=== PATIENT | male | born 1975 | race Hispanic/Latino ===

== ENCOUNTER 2019-09-23 22:18 | Inpatient (IN) | payer BC, OTHER ==
[2019-09-23 23:38] LABS: Basophils % 0.5 % (0-1.3); Hematocrit 42.2 % (39.6-49.0); Lymphocytes % 23.9 % (15.3-44.8); MPV 9.6 fL (7.6-11.3); RBC Red Blood Cell Count 4.64 M/uL (4.33-5.43)
[2019-09-23 23:40] LABS: Protime INR 1.04
[2019-09-23] MEDS ORDERED: ACETAMINOPHEN 500 MG TAB ONE (23:47)
[2019-09-23] MEDS ORDERED: NA CHLORIDE 0.9% 3,000 ML ONE (23:47)
[2019-09-23 23:51] LABS: ALT/SGPT 49 U/L (12-78); AST/SGOT 32 U/L (15-37); Albumin 3.4 g/dL (3.4-5.0); Alkaline Phosphatase 107 U/L (45-117); BUN Blood Urea Nitrogen 17 mg/dL (7-18); Bicarbonate 28 mmol/L (21-32); Bilirubin Direct < 0.1 mg/dL (0-0.2); Bilirubin Total 0.3 mg/dL (0.2-1.0); Creatine Phosphokinase 371 U/L (39-308); Glucose Level 141 mg/dL (74-106); Lipase 175 U/L (73-393); Potassium 3.9 mmol/L (3.5-5.1); Protein, Total 7.8 g/dL (6.4-8.2); Sodium Level 140 mmol/L (136-145); Troponin (Emerg Dept Use Only) 0.11 ng/mL (0.0-0.045)
[2019-09-24 00:53] LABS: Urine Bacteria <20 /HPF (NONE SEEN); Urine RBC NONE SEEN /HPF (NONE SEEN); Urine Urothelial Cells <5 /HPF (NONE SEEN)
[2019-09-24] MEDS ORDERED: ASPIRIN 81 MG CHEWABLE TABLET ONE (01:14)
[2019-09-24] MEDS ORDERED: ENOXAPARIN 30 MG/0.3 ML SQ ONE (01:47)
[2019-09-24] MEDS ORDERED: ENOXAPARIN 100 MG/ML SYR SQ ONE (01:47)
[2019-09-24] MEDS ORDERED: ACETAMINOPHEN 500 MG TAB PO PRN (03:03)
[2019-09-24] MEDS ORDERED: MORPHINE 2 MG/ML SYR IV PRN (03:03)
[2019-09-24] MEDS ORDERED: ONDANSETRON 4 MG/2 ML VIAL IV PRN (03:03)
[2019-09-24] MEDS ORDERED: HYDRALAZINE HCL 20 MG/ML VIAL IV PRN (03:07)
[2019-09-24] MEDS ORDERED: Oxycodone HCl/Acetaminophen 1 TAB TAB PO PRN (03:07)
[2019-09-24] MEDS ORDERED: ALBUTEROL 2.5 MG/3 ML NEB SOL NEB PRN (03:07)
[2019-09-24] MEDS ORDERED: GUAIFENESIN/DM 5 ML UCUP PO PRN (03:07)
--- NOTE | 2019-09-24 03:09 | EDPHYS ---
Physician Documentation [facility] Name: Evan Boogie Jr Age: 44 yrs Sex: Male : 1975 Arrival Date: 09/23/2019 Time: 22:21 Bed 30 Private MD: ED Physician Cong Yo HPI: 09/22 23:05 This 44 yrs old Male presents to ER via Ambulatory with complaints of Cough, cp Headache, ITCHY THROAT, Breathing Difficulty. 23:05 The patient or guardian reports cough, that is intermittent, with productive sputum. cp 23:05 Onset: The symptoms/episode began/occurred last month. Associated signs and symptoms: cp Pertinent positives: sore throat, headache, shortness of breath, Pertinent negatives: chest pain, diarrhea, fever, vomiting. Severity of symptoms: in the emergency department the symptoms are unchanged despite home interventions. Historical: - Allergies: 22:46 No Known Allergies; lp1 - Home Meds: 22:46 None [Active]; lp1 - PMHx: 22:46 psoriasis; Hypertension; lp1 - PSHx: 22:46 None; lp1 - Immunization history:: Adult Immunizations up to date, Flu vaccine is not up to date. - Social history:: Smoking status: Patient denies any tobacco usage or history of. ROS: 23:10 Constitutional: Positive for fever, Negative for poor PO intake. cp 23:10 Eyes: Negative for injury, pain, redness, and discharge. cp 23:10 ENT: Positive for sore throat, Negative for drainage from ear(s), ear pain, difficulty swallowing, difficulty handling secretions. 23:10 Cardiovascular: Negative for chest pain, edema, palpitations. 23:10 Respiratory: Positive for cough, "sounds productive", shortness of breath, at rest. 23:10 Abdomen/GI: Negative for abdominal pain, vomiting, diarrhea, constipation. 23:10 Back: Negative for radiated pain. 23:10 : Negative for urinary symptoms. 23:10 Skin: Negative for cellulitis, rash. 23:10 Neuro: Positive for headache, Negative for altered mental status, syncope, weakness. 23:10 All other systems are negative. Exam: 23:15 Constitutional: The patient appears in no acute distress, alert, awake, cp non-diaphoretic, non-toxic, well developed, well nourished, obese, obviously ill. 23:15 Head/Face: Normocephalic, atraumatic. cp 23:15 Eyes: Periorbital structures: appear normal, Pupils: equal, round, and reactive to light and accomodation, Extraocular movements: intact throughout, Conjunctiva: normal, no exudate, no injection, Sclera: no appreciated abnormality, Lids and lashes: appear normal, bilaterally. 23:15 ENT: External ear(s): are unremarkable, Ear canal(s): are normal, clear, TM's: dullness, bilaterally, Nose: is normal, Mouth: Lips: moist, Oral mucosa: moist, Posterior pharynx: Airway: no evidence of obstruction, patent, Tonsils: no enlargement, no exudate, Uvula: midline, swelling, is not appreciated, erythema, that is mild, exudate, is not appreciated. 23:15 Neck: ROM/movement: is normal, is supple, no meningismus, no nuchal rigidity. 23:15 Chest/axilla: Inspection: normal, Palpation: is normal, no crepitus, no tenderness. 23:15 Cardiovascular: Rate: tachycardic, Rhythm: regular, Edema: is not appreciated, JVD: is not appreciated. 23:15 Respiratory: the patient does not display signs of respiratory distress, Respirations: labored breathing, is not present, shallow respirations, are not present, Breath sounds: bronchial sounds, that are mild, are heard diffusely, stridor, is not appreciated, + upper airway congestion. 23:15 Abdomen/GI: Inspection: abdomen appears normal, Palpation: abdomen is soft and non-tender, in all quadrants. 23:15 Back: pain, is absent, ROM is normal. 23:15 Skin: no rash present. 23:15 Neuro: Orientation: to person, place \\T\\ time. Mentation: is normal, Cerebellar function: is grossly normal, Motor: moves all fours, strength is normal, Sensation: is normal. 23:30 ECG was reviewed by the Attending Physician. cp Vital Signs: 22:48 BP 138 / 81; Pulse 118; Resp 22; Temp 101.1(O); Pulse Ox 94% on R/A; Weight 129.27 kg lp1 (R); Height 5 ft. 6 in. (167.64 cm); Pain 0/10; 23:48 BP 133 / 82; Pulse 102; Resp 14; Temp 99.0(O); Pulse Ox 96% on 2 lpm NC; Pain 0/10; ls4 0318 00:40 BP 167 / 95; Pulse 71; Resp 19; Temp 99; Pulse Ox 89% on R/A; Pain 0/10; ls4 01:36 BP 138 / 105; Pulse 88; Resp 16; Temp 98.7(O); Pulse Ox 94% on 2 lpm NC; Pain 0/10; ls4 02:36 BP 141 / 95; Pulse 89; Resp 18; Pulse Ox 97% on 3 lpm NC; lp1 09/22 22:48 Body Mass Index 46.00 (129.27 kg, 167.64 cm) lp1 09/22 23:48 pt placed on 2 liters nasal canula ls4 09/23 00:40 pt resp status improved. ls4 MDM: 09/22 22:59 Patient medically screened. cp 23:15 Differential diagnosis: bronchitis, flu, URI, pneumonia, sepsis, pulmonary embolism, cp acute ND. 09/23 03:05 Data reviewed: vital signs, nurses notes, lab test result(s), EKG, radiologic studies, cp CT scan, plain films, I have discussed the patient's presentation/case with the attending Emergency Department Physician; and as a result, I will admit patient. 03:05 Antibiotic administration: Rocephin and Zithromax given. Test interpretation: by ED cp physician or midlevel provider: ECG, plain radiologic studies, chest xray negative for focal pneumonia. Response to treatment: the patient's symptoms have mildly improved after treatment, and as a result, I will admit patient. 09/22 23:01 Order name: Urine Culture 09/22 23:01 Order name: Basic Metabolic Panel; Complete Time: 00:17 cp 09/23 00:18 Interpretation: Normal except: GLUC 141; CA 8.4. cp 09/22 23:01 Order name: Blood Culture Adult (2) cp 09/22 23:01 Order name: CBC with Diff; Complete Time: 00:17 cp 09/23 00:17 Interpretation: Normal except: MN% 14.1. cp 09/22 23:01 Order name: CPK; Complete Time: 00:17 cp 09/23 00:17 Interpretation: Abnormal: CPK 371. cp 09/22 23:01 Order name: Lactate; Complete Time: 00:17 cp 09/22 23:01 Order name: LFT's; Complete Time: 00:17 cp 09/23 00:20 Interpretation: Normal except: GLOB 4.4; A/G 0.8. cp 09/22 23:01 Order name: Lipase; Complete Time: 00:17 cp 09/22 23:01 Order name: Procalcitonin; Complete Time: 00:54 cp 09/23 00:55 Interpretation: Reviewed. cp 09/22 23:01 Order name: Protime (+inr); Complete Time: 00:54 cp 09/22 23:01 Order name: Ptt, Activated; Complete Time: 00:54 cp 09/22 23:01 Order name: Troponin (emerg Dept Use Only); Complete Time: 00:17 cp 09/23 00:18 Interpretation: Abnormal: TROPED 0.11. cp 09/22 23:01 Order name: Urine Microscopic Only; Complete Time: 00:54 cp 09/22 23:04 Order name: Flu; Complete Time: 00:17 ls4 09/23 00:21 Order name: D-Dimer; Complete Time: 00:54 EDMS 09/23 00:27 Order name: Strep; Complete Time: 02:59 ls4 09/23 01:07 Order name: Glucose, Ancillary Testing; Complete Time: 01:14 EDMS 09/23 02:11 Order name: Throat Culture EDMS 09/23 03:08 Order name: CBC with Automated Diff EDMS 09/23 03:08 Order name: CBC with Automated Diff EDMS 09/23 03:08 Order name: Comprehensive Metabolic Panel EDMS 09/23 03:08 Order name: Comprehensive Metabolic Panel EDMS 09/23 03:12 Order name: Thyroid Stimulating Hormone EDMS 09/23 03:12 Order name: Magnesium EDMS 09/23 03:12 Order name: Magnesium EDMS 09/23 03:12 Order name: Magnesium EDMS 09/23 03:12 Order name: Magnesium EDMS 09/23 03:12 Order name: Troponin I EDMS 09/23 03:12 Order name: Troponin I EDMS 09/23 03:12 Order name: Troponin I EDMS 09/22 23:01 Order name: Accucheck; Complete Time: 23:34 cp 09/22 23:01 Order name: Cardiac monitoring; Complete Time: 23:34 cp 09/22 23:01 Order name: EKG - Nurse/Tech; Complete Time: 23:35 cp 09/22 23:01 Order name: IV Saline Lock - Large Bore; Complete Time: 23:35 cp 09/22 23:01 Order name: Labs collected and sent; Complete Time: 23:35 cp 09/22 23:01 Order name: O2 Per Protocol; Complete Time: 23:35 cp 09/22 23:01 Order name: O2 Sat Monitoring; Complete Time: 23:35 cp 09/22 23:01 Order name: Urine Dipstick-Ancillary (obtain specimen); Complete Time: 00:13 cp 09/22 23:50 Order name: XRAY Chest Pa And Lat (2 Views) 09/23 01:16 Order name: CT Chest For PE Angio 09/23 03:08 Order name: CONS Pharmacy Consult [facility] 09/23 03:08 Order name: CONS Physician Consult [facility] 09/23 03:08 Order name: Heart Healthy [facility] 09/23 03:12 Order name: Echo with Doppler [facility] 09/23 03:12 Order name: Troponin I [facility] 09/23 03:12 Order name: Sputum Gram Stain [facility] 09/23 03:12 Order name: Sputum Culture [facility] EC/17 23:30 Rate is 114 beats/min. Rhythm is regular. NH interval is normal. QRS interval is cp normal. Interpreted by me. Reviewed by me. Administered Medications: Discontinued: NS 0.9% (30 ml/kg) 30 ml/kg IV at bolus once; Sepsis Protocol 23:36 Drug: Acetaminophen 1000 mg Route: PO; ls4 09/23 00:01 Follow up: Response: No adverse reaction; Marked relief of symptoms 4 09/22 23:38 Drug: NS 0.9% (30 ml/kg) 3800 mg Route: IV; Rate: bolus; Site: right antecubital; ls4 09/23 01:20 Follow up: IV Intake: 1000ml ls4 00:52 Drug: Aspirin Chewable Tablet 324 mg Route: PO; ls4 01:20 Follow up: Response: No adverse reaction ls4 01:33 Drug: Lovenox 130 mg Route: Sub-Q; Site: right lower abdomen; ls4 02:09 Follow up: Response: No adverse reaction ls4 03:55 Drug: Rocephin 2 grams Route: IV; Rate: calculated rate; Site: right antecubital; jb4 04:01 Follow up: Response: No adverse reaction; IV Status: Completed infusion; IV Intake: [id number] 04:05 Drug: Zithromax 500 mg Route: IVPB; Infused Over: 1 hrs; Site: right antecubital; jb4 Disposition: 16:30 Co-signature as Attending Physician, Cong Yo MD I agree with the assessment and 4 plan of care. Disposition: 09/24/19 03:08 Hospitalization ordered by Sidney Sheth for Inpatient Admission. Preliminary diagnosis are Pneumonia due to other specified bacteria, Acute Coronary Syndrome, Hypertensive heart disease. - Bed requested for Telemetry/MedSurg (Inpatient). - Status is Inpatient Admission. sv - Condition is Stable. - Problem is new. - Symptoms have improved. Signatures: Dispatcher [employer] EDMS Sara Nieto RN RN Alfreda Carlson RN RN Karishma Begum RN RN lp1 Issac Martinez PA PA Abundio Pate, RN AKIRA jb4 Cong Yo MD MD 4 Lauren Ellsworth RN RN ls4 Corrections: (The following items were deleted from the chart) 00:18 00:17 Normal except: GLUC 141. cp cp 03:08 03:08 Hospitalization Ordered by Sidney Sheth MD for Inpatient Admission. Preliminary cp diagnosis is Pneumonia due to other specified bacteria; Acute Coronary Syndrome. Bed requested for Telemetry/MedSurg (Inpatient). Status is Inpatient Admission. Condition is Stable. Problem is new. Symptoms have improved. cp 03:12 03:08 09/24/2019 03:08 Hospitalization Ordered by Sidney Sheth MD for Inpatient mw Admission. Preliminary diagnosis is Pneumonia due to other specified bacteria; Acute Coronary Syndrome; Hypertensive heart disease. Bed requested for Telemetry/MedSurg (Inpatient). Status is Inpatient Admission. Condition is Stable. Problem is new. Symptoms have improved. cp 05:50 03:12 09/24/2019 03:08 Hospitalization Ordered by Sidney Sheth MD for Inpatient mw Admission. Preliminary diagnosis is Pneumonia due to other specified bacteria; Acute Coronary Syndrome; Hypertensive heart disease. Bed requested for [facility] ER HOLD. Status is Inpatient Admission. Condition is Stable. Problem is new. Symptoms have improved. 07:59 05:50 09/24/2019 03:08 Hospitalization Ordered by Sidney Sheth MD for Inpatient sv Admission. Preliminary diagnosis is Pneumonia due to other specified bacteria; Acute Coronary Syndrome; Hypertensive heart disease. Bed requested for Telemetry/MedSurg (Inpatient). Status is Inpatient Admission. Condition is Stable. Problem is new. Symptoms have improved. mw
--- NOTE | 2019-09-24 03:09 | ER ---
Nurse's Notes [facility] Name: Evan Boogie Jr Age: 44 yrs Sex: Male : 1975 Arrival Date: 09/23/2019 Time: 22:21 Bed 30 Private MD: Diagnosis: Pneumonia due to other specified bacteria;Acute Coronary Syndrome;Hypertensive heart disease Presentation: 09/22 22:44 Chief complaint: Patient states: Trouble breathing due to coughing up mucus for the lp1 past 6 weeks; Attempted to see PCP but had to leave due to another appt scheduled; Denies any fever, vomiting, diarrhea. Coronavirus screen: The patient has NOT traveled to a country currently being monitored by the [facility] within the last 14 days. The patient has NOT had contact with any known and/or suspected case of coronavirus. Ebola Screen: No symptoms or risks identified at this time. Risk Assessment: Do you want to hurt yourself or someone else? Patient reports no desire to harm self or others. 22:44 Method Of Arrival: Ambulatory lp1 22:44 Acuity: VALERIE 3 lp1 23:01 Initial Sepsis Screen: Does the patient meet any 2 criteria? Temp <36.0*C (96.8*F)) or lp1 > 38.3*C (100.9*F). HR > 90 bpm. Does the patient have a suspected source of infection? Yes: Productive cough/pneumonia. Triage Assessment: 22:49 General: Appears uncomfortable, obese, Behavior is calm, cooperative. Pain: Denies ls4 pain. Neuro: Level of Consciousness is awake, alert, obeys commands, Oriented to person, place, time, situation. Cardiovascular: Denies chest pain, Capillary refill < 3 seconds Patient's skin is warm and dry. Respiratory: Airway is patent Respiratory effort is even, unlabored, Respiratory pattern is regular, the patient has moderate shortness of breath Parent/caregiver reports the patient having cough that is productive, hacking, pain with cough. 22:49 Headache History: The patient has had previous headaches and this one is similar to ls4 previous episodes. 22:49 Pain: Complains of pain in neck Pain at worst was 3 out of 10 on a pain scale. Pain ls4 began gradually, 3 weeks Aggravated by coughing Also complains of no other associated symptoms. shortness of breath. Historical: - Allergies: 22:46 No Known Allergies; lp1 - Home Meds: 22:46 None [Active]; lp1 - PMHx: 22:46 psoriasis; Hypertension; lp1 - PSHx: 22:46 None; lp1 - Immunization history:: Adult Immunizations up to date, Flu vaccine is not up to date. - Social history:: Smoking status: Patient denies any tobacco usage or history of. Screenin:46 Abuse screen: Denies threats or abuse. Denies injuries from another. Nutritional lp1 screening: No deficits noted. Tuberculosis screening: No symptoms or risk factors identified. Fall Risk None identified. Assessment: 23:16 General: Appears uncomfortable. Cardiovascular: Reports shortness of breath, Denies ls4 chest pain, Capillary refill < 3 seconds Clubbing of nail beds is absent Patient's skin is warm and dry. Chest pain is denied. 23:16 Respiratory: Reports shortness of breath on exertion cough that is non-productive, ls4 since 3 weeks. GI: No deficits noted. No signs and/or symptoms were reported involving the gastrointestinal system. : No deficits noted. No signs and/or symptoms were reported regarding the genitourinary system. Derm: No deficits noted. No signs and/or symptoms reported regarding the dermatologic system. Musculoskeletal: No deficits noted. No signs and/or symptoms reported regarding the musculoskeletal system. 09/23 00:00 Reassessment: Patient appears in no apparent distress at this time. Patient and/or ls4 family updated on plan of care and expected duration. Pain level reassessed. Patient is alert, oriented x 3, equal unlabored respirations, skin warm/dry/pink. pt placed on 2 liters nasal cannula Patient states symptoms have improved. 01:00 Reassessment: Patient appears in no apparent distress at this time. Patient and/or ls4 family updated on plan of care and expected duration. Pain level reassessed. Patient is alert, oriented x 3, equal unlabored respirations, skin warm/dry/pink. pt resting quietly . 02:35 Reassessment: Patient appears in no apparent distress at this time. Patient resting, lp1 eyes closed, respirations even. Vital Signs: 09/22 22:48 BP 138 / 81; Pulse 118; Resp 22; Temp 101.1(O); Pulse Ox 94% on R/A; Weight 129.27 kg lp1 (R); Height 5 ft. 6 in. (167.64 cm); Pain 0/10; 23:48 BP 133 / 82; Pulse 102; Resp 14; Temp 99.0(O); Pulse Ox 96% on 2 lpm NC; Pain 0/10; ls4 03/18 00:40 BP 167 / 95; Pulse 71; Resp 19; Temp 99; Pulse Ox 89% on R/A; Pain 0/10; ls4 01:36 BP 138 / 105; Pulse 88; Resp 16; Temp 98.7(O); Pulse Ox 94% on 2 lpm NC; Pain 0/10; ls4 02:36 BP 141 / 95; Pulse 89; Resp 18; Pulse Ox 97% on 3 lpm NC; lp1 09/22 22:48 Body Mass Index 46.00 (129.27 kg, 167.64 cm) lp1 09/22 23:48 pt placed on 2 liters nasal canula ls4 03 00:40 pt resp status improved. ls4 ED Course: 09/22 22:21 Patient arrived in ED. ag3 22:33 Lauren Ellsworth, RN is Primary Nurse. ls4 22:45 Triage completed. lp1 22:46 Arm band placed on right wrist. lp1 22:50 Issac Martinez PA is PHCP. cp 22:50 Cong Yo MD is Attending Physician. cp 23:03 Lauren Ellsworth, RN is Primary Nurse. ls4 23:10 No provider procedures requiring assistance completed. Inserted saline lock: 20 gauge ls4 in right antecubital area, using aseptic technique. Blood collected. 23:36 Initial lab(s) drawn, by nh, sent to lab. First set of blood cultures drawn by me, ls4 Second set of blood cultures drawn. Oxygen administration via nasal cannula. 03/18 00:40 XRAY Chest Pa And Lat (2 Views) In Process Unspecified. EDMS 02:17 CT Chest For PE Angio In Process Unspecified. EDMS 02:36 Patient has correct armband on for positive identification. Placed in gown. Bed in low lp1 position. Call light in reach. Report received from Lauren Ellsworth RN. monitoring tech on. Pulse ox on. NIBP on. 03:07 Sidney Sheth MD is Hospitalizing Provider. cp 07:45 Patient admitted, IV remains in place. sv Administered Medications: Discontinued: NS 0.9% (30 ml/kg) 30 ml/kg IV at bolus once; Sepsis Protocol 09/22 23:36 Drug: Acetaminophen 1000 mg Route: PO; ls4 09/23 00:01 Follow up: Response: No adverse reaction; Marked relief of symptoms ls4 09/22 23:38 Drug: NS 0.9% (30 ml/kg) 3800 mg Route: IV; Rate: bolus; Site: right antecubital; ls4 09/23 01:20 Follow up: IV Intake: 1000ml ls4 00:52 Drug: Aspirin Chewable Tablet 324 mg Route: PO; ls4 01:20 Follow up: Response: No adverse reaction ls4 01:33 Drug: Lovenox 130 mg Route: Sub-Q; Site: right lower abdomen; ls4 02:09 Follow up: Response: No adverse reaction ls4 03:55 Drug: Rocephin 2 grams Route: IV; Rate: calculated rate; Site: right antecubital; jb4 04:01 Follow up: Response: No adverse reaction; IV Status: Completed infusion; IV Intake: [id number] 04:05 Drug: Zithromax 500 mg Route: IVPB; Infused Over: 1 hrs; Site: right antecubital; jb4 Intake: 01:20 IV: 1000ml; Total: 1000ml. ls4 04:01 IV: 20ml; Total: 1020ml. jb4 Outcome: 03:08 Decision to Hospitalize by Provider. cp 07:45 Admitted to Tele accompanied by tech, via stretcher, room 418, with oxygen, with chart, sv Report called to Faith CHAMPION 07:45 Condition: stable 07:45 Instructed on the need for admit. 07:59 Patient left the ED. sv Signatures: Dispatcher [employer] EDMS Sara Nieto RN RN sv Karishma Begum RN RN lp1 Issac Martinez PA PA cp Abundio Santizo, RN RN jb4 Gretchen Higginbotham3 Lauren Ellsworth, RN RN ls4 Corrections: (The following items were deleted from the chart) 00:13 09/22 23:38 NS 0.9% (30 ml/kg) 30 ml/kg IV at bolus in right antecubital ls4 ls4 09/23 00:33 09/22 23:37 General: Appears uncomfortable, obese, Behavior is calm, cooperative, ls4 ls4 09/23 00:33 09/22 23:37 Pain: Denies pain. ls4 ls4 09/23 00:33 09/22 23:37 Neuro: Level of Consciousness is awake, alert, obeys commands, Oriented to ls4 person, place, time, situation, ls4 09/23 00:33 09/22 23:37 Respiratory: Airway is patent Respiratory effort is even, unlabored, ls4 Respiratory pattern is regular, the patient has moderate shortness of breath Parent/caregiver reports the patient having cough that is productive, hacking, pain with cough ls4 09/23 00:33 09/22 23:37 Cardiovascular: Denies chest pain, Capillary refill < 3 seconds Patient's ls4 skin is warm and dry. ls4 0318 00:34 00:20 BP 133 / 82; Pulse 102bpm; Resp 14bpm; Pulse Ox 96% RA; Temp 99.0F Oral; Pain ls4 0/10; ls4 00:42 00:20 BP 133 / 82; Pulse 102bpm; Resp 14bpm; Pulse Ox 96% 2 lpm Nasal Cannula; Temp ls4 99.0F Oral; Pain 0/10; ls4 00:45 00:34 Reassessment: pt placed on 2 liters nasal cannula ls4 ls4 00:46 00:40 BP 167 / 95; Pulse 71bpm; Resp 19bpm; Pulse Ox 89% RA; Temp 99F; Pain 0/10; pt ls4 placed on 2 liters nasal canula ; ls4
--- NOTE | 2019-09-24 03:18 | P.HP ---
Certification for Inpatient Patient admitted to: Inpatient With expected LOS: >2 Midnights Patient will require the following post-hospital care: None Practitioner: I am a practitioner with admitting privileges, knowledge of patient current condition, hospital course, and medical plan of care. Services: Services provided to patient in accordance with Admission requirements found in Title 42 Section 412.3 of the Code of Federal Regulations Patient History Date of Service: 09/24/19 Reason for admission: Cough History of Present Illness: 40 CT of male with past medical history of hypertension, not taking any medication, history of obesity, admitted because of cough associated with chest and throat pressure. Cough is productive of whitish-yellowish sputum. He admit to cough contact from . He admits to headache . + fever and chills Cough is associated with chest pressure. He denies any body swelling. He admits to mild shortness of breath on exertion. On arrival in the ED he has O2 sats in the low 80s but improved to low 90s , documented fever 101. Chest x-ray shows mild haziness on the left side. He had a CT of the chest shows no evidence of pulmonary emboli but left posterior lower lobe infiltrate Allergies No Known Allergies Allergy (Unverified 09/24/19 04:08) Home medications list reviewed: No - Past Medical/Surgical History Has patient received pneumonia vaccine in the past: No Diabetic: No -: Hypertension -: Obesity Past Surgical History: Patient denies surgical history - Family History Family History: Reviewed- Non-Contributory - Social History Smoking Status: Never smoker Alcohol use: No CD- Drugs: No Caffeine use: No Review of Systems General: Fever, Chills, Weakness, Malaise Eyes: Conjunctivae Inflammation ENT: Nose Discharge, Nose Congestion Respiratory: Cough, Shortness of Breath, SOB with Excertion, Pleuritic Pain Cardiovascular: Unremarkable Gastrointestinal: Unremarkable Genitourinary: Unremarkable Musculoskeletal: Unremarkable Integumentary: Unremarkable Neurological: Unremarkable Physical Examination - Physical Exam General: Alert, Cooperative, Mild distress (Mild respiratory) HEENT: Atraumatic, Normocephalic Neck: Supple, 2+ carotid pulse no bruit, JVD not distended Respiratory: Diminished, Expiratory wheezes Cardiovascular: Normal pulses, Regular rate/rhythm, Normal S1 S2 Capillary refill: <2 Seconds Gastrointestinal: Normal bowel sounds, Soft and benign, Non-distended, No tenderness Musculoskeletal: No clubbing, No swelling Neurological: Normal speech, Normal strength at 5/5 x4 extr - Studies Laboratory Data (last 24 hrs) 09/23/19 23:05: PT 12.2, INR 1.04, APTT 33.3 09/23/19 23:05: WBC 4.3, Hgb 14.5, Hct 42.2, Plt Count 157 09/23/19 23:05: Sodium 140, Potassium 3.9, BUN 17, Creatinine 0.87, Glucose 141 H, Total Bilirubin 0.3, AST 32, ALT 49, Alkaline Phosphatase 107, Lipase 175 Microbiology Data (last 24 hrs): 09/24/19 00:24 Throat Group A Streptococcus Rapid Screen - Final 09/23/19 23:13 Nasopharnyx Influenza Type A Antigen Screen - Final 09/23/19 23:13 Nasopharnyx Influenza Type B Antigen Screen - Final Assessment and Plan - Problems (Diagnosis) (1) Left lower lobe pneumonia Current Visit: Yes Status: Acute (2) Hypertension Current Visit: Yes Status: Acute - Advance Directives Does patient have a Living Will: No Does patient have a Durable POA for Healthcare: No - Code Status/Comfort Care Code Status Assessed: Yes Physician Review: Patient Assessed, Agree with Above Assessment and Plan Physician Review Additional Text: # left lobe pneumonia-will obtain sputum for culture and sensitivity. -restart nasal cannula O2. -we do gentle IV fluid hydration -will we will start antibiotics with Rocephin and Zithromax -often blood culture x2 -we start duo nebs p.r.n. for wheezing Given presence of fever will also need to rule out covid 19 infection # elevated troponin-may be due to demand mediated, and no new EKG changes -will follow serial set of cardiac enzymes -we start Lovenox/aspirin -will consult Cardiology -may need cardiac intervention # hypertension-not on any medication, start hydralazine p.r.n. follow # DVT prophylaxis-subcu enoxaparin # advanced directives-full code
[2019-09-24] MEDS ORDERED: AZITHROMYCIN 500 MG INJ IVPB ONE (03:30)
[2019-09-24] MEDS ORDERED: NA CHLORIDE 0.9% 250 ML ONE (03:30)
[2019-09-24] MEDS ORDERED: CEFTRIAXONE/SWI 1gm 2 GM/20 ML SYR ONE (03:30)
[2019-09-24] MEDS ORDERED: ALBUTEROL 2.5 MG/3 ML NEB SOL NEB SCH (04:00)
[2019-09-24] MEDS ORDERED: NA CHLORIDE 0.9% 1,000 ML IV SCH (04:00)
[2019-09-24] MEDS: IPRATROPIUM BROM 0.5MG/2.5ML NEB SCH ×3 (04:45→12:00)
[2019-09-24] MEDS ORDERED: IPRATROPIUM BROM 0.5MG/2.5ML ONE (04:50)
[2019-09-24] MEDS ORDERED: ALBUTEROL 2.5 MG/3 ML NEB SOL ONE (04:50)
[2019-09-24 06:03] LABS: Thyroid Stimulating Hormone 3.67 uIU/mL (0.360-3.740)
[2019-09-24] MEDS ORDERED: NA CHLORIDE 0.9% 1,000 ML ONE (06:05)
[2019-09-24] MEDS ORDERED: BENZONATATE 100 MG CAP PO PRN (06:45)
[2019-09-24] MEDS ORDERED: PANTOPRAZOLE 40MG TABLET PO SCH (07:30)
[2019-09-24] MEDS ORDERED: ALBUTEROL INHALER 60 PUFF/8 GM IH PRN (07:55)
[2019-09-24 08:10] VITALS: BMI 46.0
--- NOTE | 2019-09-24 08:44 | RAD REPORT ---
EXAM DESCRIPTION: RAD - Chest Pa And Lat (2 Views) - 09/24/2019 12:40 am CLINICAL HISTORY: Cough;Fever Chest pain. COMPARISON: Chest For Pe Angio dated 09/24/2019 FINDINGS: Poorly defined opacity is present in the right base suggesting infiltrate. The heart is no rmal in size. No displaced fractures.
[2019-09-24] MEDS: GUAIFENESIN 600 MG SA TAB PO SCH ×2 (08:46→20:37)
[2019-09-24] MEDS: ENOXAPARIN 40 MG/0.4 ML SQ SCH (08:47)
[2019-09-24] MEDS: CEFTRIAXONE/SWI 1gm 1 GM/10 ML SYR IV SCH (08:47)
[2019-09-24] MEDS: AZITHROMYCIN 250 MG TAB PO SCH (08:47)
[2019-09-24] MEDS: ASPIRIN EC 81 MG TAB PO SCH (09:00)
[2019-09-24] MEDS ORDERED: CEFTRIAXONE 1 GM/NS 50 ML 1 GM/50 ML BAG IV SCH (09:00)
--- NOTE | 2019-09-24 10:21 | CON ---
History Of Present Illness: Mr. Boogie came to the hospital because of worsening respiratory sympto ms. He has been coughing for 6 weeks or longer. Denies having any fever or chills. He has been cou ghing up phlegm that is pale yellow to white and cloudy but not clear sometime. When he came to the emergency room last night, a chest x-ray did not look completely normal and the CT scan indicates low t in both lung bases, more on the right, there are findings consistent with coronavirus. He has a hi gh temperature with this hospitalization of 101.1. The patient has underlying hypertension, but does not take medicine for it. He also has psoriasis but does not take medicine for that either. His ou tpatient medications are clobetasol and guselkumab or Tremfya, neither of which he is actually taking . Physical Examination: General: He is 5 feet 6 inches, 284 pounds, obese, alert, oriented, pleasant, not in distress. Lungs: Do not reveal crackles or wheeze. Heart: Within normal limits. Laboratory Exam: Indicates troponins are 0.11 and 0.13, just about the same over a 6-hour period of time. His EKG does not show infarction, injury, or ischemia. The EKG is not in his chart as of now. Impression: The patient may well have the coronavirus with significant findings on his x-ray. He is in isolation. Exam was done and the patient was isolated. He had personal protection, so that part is good. I think the troponins are false positive most likely, a lot of viral syndromes have tropon ins in this range. I would not recommend he undergo a cardiac cath or stress test now. When he is f ree of his infectious disease, we could consider doing a stress test, but most likely the patient just needs to take better care of himself and treat his hypertension risk factors more carefully. TORY/MODL Voice ID: [id number] Report ID: [id number]
--- NOTE | 2019-09-24 10:44 | RAD REPORT ---
EXAM DESCRIPTION: CT chest angiography with intravenous contrast CLINICAL HISTORY: 44-year-old male with cough and shortness of breath. TECHNIQUE: Following the administration of intravenous contrast, multiple high-resolution axial imag es of the chest were performed followed by sagittal and coronal reconstructed images. MIP images were not performed. The CT study is performed according to ALARA (as low as reasonably achievable) or ALA RA/IMAGE GENTLY, with automatic adjustment of mA and/or kV according to patient size. Performed on: 09/24/2019 at 2:05 AM COMPARISON: None FINDINGS: There is satisfactory visualization and contrast opacification of pulmonary arteries. No definite intra-arterial filling defects are identified to suggest acute or chronic pulmonary embolis m. There is some breathing motion artifact on the images resulting in slight degradation of image lito lity. The thoracic aorta is normal in caliber and contour without evidence of aneurysm or dissection. 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 The lungs are well expanded. There is focal patchy airspace consolidation in the posterior lateral as pect of the right lower lobe most consistent with a pneumonic infiltrate. There are small tree-in-bud opacities in the posterior left lower lobe likely representing a focal area bronchiolitis. There are no pleural effusions. There is no pneumothorax. The heart is normal in size. There is no pericardial effusion. There is no evidence of hilar, mediastinal or axillary lymphadenopathy. No acute osseous abnormality is identified. The visualized upper abdominal structures are unremarkable. IMPRESSION: 1. No CT evidence to suggest acute or chronic pulmonary embolism, aortic aneurysm or aor tic dissection. 2. Focal patchy airspace consolidation in the posterior lateral aspect of the right lower lobe most c onsistent with a pneumonic infiltrate. 3. Small tree-in-bud opacities in the posterior left lower lobe likely representing a focal area of bronchiolitis. Electronically signed by: Lindsey Crain DO 09/24/2019 2:34 AM CDT Due to temporary technical issues with the PACS/Fluency reporting system, reports are being signed by the in house radiologist as a courtesy to ensure prompt reporting. The interpreting radiologist is f ully responsible for the content of the report.
--- NOTE | 2019-09-24 12:10 | P.CNS ---
Date of Consult: 09/24/19 Reason for Consult: Pneumonia Chief Complaint: Cough History of Present Illness: Patient is 44 years of age and has been complaining of cough congestion for the past 6 weeks got worse yesterday had some fever difficulty breathing and appeared in the hospital does not currently smoke no prior history of cardiopulmonary problems Allergies No Known Allergies Allergy (Unverified 09/24/19 04:08) Home Medications: Clobetasol [Temovate Cream 0.05%*] 1 riley TOP DAILY 09/24/19 Guselkumab [Tremfya] 100 mg SQ SEECOM 09/24/19 - Past Medical/Surgical History Diabetic: No -: Hypertension -: Obesity -: herniA -: History of psoriasis - Social History Alcohol use: Yes CD- Drugs: No Caffeine use: Yes Place of Residence: Home Review of Systems 10-point ROS is otherwise unremarkable General: Weakness Respiratory: Cough, Shortness of Breath Physical Examination Temp Pulse Resp BP Pulse Ox 97.1 F 86 18 151/81 H 97 09/24/19 12:00 09/24/19 12:00 09/24/19 12:00 09/24/19 12:00 09/24/19 12:00 General: Alert, Oriented x3 HEENT: Atraumatic Neck: Supple Respiratory: Expiratory wheezes Cardiovascular: No edema, Regular rate/rhythm, Normal S1 S2 Laboratory Data (last 24 hrs) 09/23/19 23:05: PT 12.2, INR 1.04, APTT 33.3 09/23/19 23:05: WBC 4.3, Hgb 14.5, Hct 42.2, Plt Count 157 09/23/19 23:05: Sodium 140, Potassium 3.9, BUN 17, Creatinine 0.87, Glucose 141 H, Total Bilirubin 0.3, AST 32, ALT 49, Alkaline Phosphatase 107, Lipase 175 - Problems (1) Left lower lobe pneumonia Current Visit: Yes Status: Acute Plan: Patient is 44 years of age admitted with cough congestion for the past 6 weeks he is immunocompromised patient is on a biological agent for his psoriasis does not smoke chemistries unremarkable agree withCOVID testing t continue with antibiotic blood pressure mildly elevated Dc IV fluids control blood pressure inhaled bronchodilator the bedside I used airborne precautions with the mask and this since in about 6 feet from the patient Qualifiers: Pneumonia type: due to unspecified organism Qualified Code(s): J18.9 - Pneumonia, unspecified organism
[2019-09-24] MEDS: LOSARTAN POTASSIUM 50 MG TABLET PO SCH (12:31)
--- NOTE | 2019-09-24 13:25 | EKG ---
Test Date: 2019-09-23 Test Time: 23:20:26 [employer] Electrician: TRINIDAD MEASUREMENT RESULTS: Intervals: Rate: 114 IL: 184 QRSD: 64 QT: 312 QTc: 430 [place]: P: 38 IL: 184 QRS: 8 T: 34 INTERPRETIVE STATEMENTS: Sinus tachycardia Otherwise normal ECG No previous ECG available for comparison Electronically Signed On 09-24-19 13:24:26 CDT by Chidi Arreaga
--- NOTE | 2019-09-24 14:04 | P.PN ---
Subjective Date of Service: 09/24/19 Primary Care Provider: Unknown Chief Complaint: Cough Subjective: Other (Patient with mild cough. Shortness of breath improved. Patient had fever.) Physical Examination - Vital Signs Temperature: 97.1 F Blood Pressure: 151/81 Pulse: 86 Respirations: 18 Pulse Ox (%): 97 - Physical Exam General: Alert, In no apparent distress, Oriented x3, Cooperative HEENT: Atraumatic Neck: Supple Respiratory: Crackles/rales (To the bases), Expiratory wheezes (Mild throughout) Cardiovascular: Normal pulses, Regular rate/rhythm Gastrointestinal: Normal bowel sounds, Soft and benign, Non-distended, No masses , No rebound, No guarding Musculoskeletal: No erythema, No tenderness, No warmth Integumentary: No tenderness/swelling, No erythema, No warmth, No cyanosis Neurological: Normal speech, Normal strength at 5/5 x4 extr, Normal tone, Normal affect Other Physical/Emotional Findings: Upon examination PPE protocol along with respiratory isolation precautions were done. - Studies Laboratory Data (last 24 hrs) 09/23/19 23:05: PT 12.2, INR 1.04, APTT 33.3 09/23/19 23:05: WBC 4.3, Hgb 14.5, Hct 42.2, Plt Count 157 09/23/19 23:05: Sodium 140, Potassium 3.9, BUN 17, Creatinine 0.87, Glucose 141 H, Total Bilirubin 0.3, AST 32, ALT 49, Alkaline Phosphatase 107, Lipase 175 Microbiology Data (last 24 hrs): 09/24/19 00:24 Throat Group A Streptococcus Rapid Screen - Final 09/23/19 23:13 Nasopharnyx Influenza Type A Antigen Screen - Final 09/23/19 23:13 Nasopharnyx Influenza Type B Antigen Screen - Final Medications List Reviewed: Yes Assessment & Plan Discharge Plan: Home Plan to discharge in: Greater than 2 days Physician Review Additional Text: Impression: Cough, fever, shortness of breath secondary to bilateral pneumonia suspicious for viral illness must rule COVID 19 Elevated troponin likely from cardiac demand Hypertension Psoriasis on disease modifying medication Plan: Cough, fever, shortness of breath secondary to bilateral pneumonia suspicious for viral illness must rule COVID 19: Patient will continue with respiratory precautions. PPE protocol in place for staff. Patient provided history of recent large gathering with possible person positive for COVID 19. Patient also on disease modifying medication for psoriasis. Case discussed with pulmonology and nursing. Health department has been called. Patient identified as patient under investigation for COVID 19. Patient under initiation protocol in place. Will continue current medication. Viral samples will be obtained. Await findings. Maintain oxygen above 93%. Wean off oxygen. Will provide medication for cough. Patient will be treated as community-acquired pneumonia at this time. Need to consider antiviral treatment if condition worsens. Case will be discussed further with pulmonology. Elevated troponin likely from cardiac demand: Case discussed with cardiology. No need for cardiac intervention at this time. This can be done as an outpatient. Hypertension: Will need to review and restart home medication. Psoriasis on disease modifying medication: Hold off on current medication. Time Spent Managing Pts Care (In Minutes): 55
[2019-09-24] MEDS: DULERA 200/5 (MOMETASONE/FORMOTEROL) INHALER IH SCH (20:38)
[2019-09-25 05:36] LABS: Absolute Lymphocytes (CBC) 1.6 K/uL (0.7-4.9); Basophils % 0.4 % (0-1.3); Hematocrit 42.9 % (39.6-49.0); MPV 8.9 fL (7.6-11.3)
[2019-09-25 05:41] LABS: ALT/SGPT 46 U/L (12-78); AST/SGOT 27 U/L (15-37); Albumin 3.4 g/dL (3.4-5.0); Alkaline Phosphatase 97 U/L (45-117); BUN Blood Urea Nitrogen 11 mg/dL (7-18); Bicarbonate 30 mmol/L (21-32); Bilirubin Total 0.3 mg/dL (0.2-1.0); Glucose Level 108 mg/dL (74-106); Magnesium 2.1 mg/dL (1.8-2.4); Potassium 4.2 mmol/L (3.5-5.1); Protein, Total 7.7 g/dL (6.4-8.2); Sodium Level 139 mmol/L (136-145)
[2019-09-25] MEDS: DULERA 200/5 (MOMETASONE/FORMOTEROL) INHALER IH SCH (07:10)
[2019-09-25] MEDS: CEFTRIAXONE/SWI 1gm 1 GM/10 ML SYR IV SCH (07:10)
[2019-09-25] MEDS: ASPIRIN EC 81 MG TAB PO SCH (07:11)
[2019-09-25] MEDS: AZITHROMYCIN 250 MG TAB PO SCH (07:11)
[2019-09-25] MEDS: ENOXAPARIN 40 MG/0.4 ML SQ SCH (07:11)
[2019-09-25] MEDS: LOSARTAN POTASSIUM 50 MG TABLET PO SCH (07:11)
[2019-09-25] MEDS: GUAIFENESIN 600 MG SA TAB PO SCH (07:13)
--- NOTE | 2019-09-25 08:05 | RAD REPORT ---
EXAM DESCRIPTION: RAD - Chest Single View - 09/25/2019 7:59 am CLINICAL HISTORY: follow up pneumonia COMPARISON: CT chest September 23, two view chest September 23 TECHNIQUE: AP portable chest image was obtained 09/25/2019 7:59 am . FINDINGS: Significantly improved aeration of the lung yi noted compared with September 23 imaging. N o evidence for a progressive lung parenchymal process. No enlarging pleural effusion. Heart and vascu lature are normal. No pneumothorax. No acute bony abnormality seen. No acute aortic findings suspecte d. IMPRESSION: Improved aeration of the lung yi with substantial resolution of the infiltrative adriana nges seen in the lower lung yi on the portable study. Posterior gutter remnant infiltrate can be masked on portable imaging.
[2019-09-25 08:46] LABS: Blood Morphology Comment NOT SEEN (NOT SEEN); Platelet Estimate ADEQ
[2019-09-25] MEDS ORDERED: CLOBETASOL 0.05 % CREAM 15GM TOP SCH (09:00)
--- NOTE | 2019-09-25 11:53 | P.DS ---
Admission Date: 09/24/19 Discharge Date: 09/25/19 Primary Care Provider: Dr. Roper Disposition: ROUTINE DISCHARGE Discharge Condition: GOOD Reason for Admission: Cough Consultations: Pulmonary-Dr. Yeboah Cardiology-Dr. Arreaga Procedures: CT Scan: COMPARISON: None FINDINGS: There is satisfactory visualization and contrast opacification of pulmonary arteries. No definite intra-arterial filling defects are identified to suggest acute or chronic pulmonary embolism. There is some breathing motion artifact on the images resulting in slight degradation of image quality. The thoracic aorta is normal in caliber and contour without evidence of aneurysm or dissection. 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 The lungs are well expanded. There is focal patchy airspace consolidation in the posterior lateral aspect of the right lower lobe most consistent with a pneumonic infiltrate. There are small tree-in-bud opacities in the posterior left lower lobe likely representing a focal area bronchiolitis. There are no pleural effusions. There is no pneumothorax. The heart is normal in size. There is no pericardial effusion. There is no evidence of hilar, mediastinal or axillary lymphadenopathy. No acute osseous abnormality is identified. The visualized upper abdominal structures are unremarkable. IMPRESSION: 1. No CT evidence to suggest acute or chronic pulmonary embolism, aortic aneurysm or aortic dissection. 2. Focal patchy airspace consolidation in the posterior lateral aspect of the right lower lobe most consistent with a pneumonic infiltrate. 3. Small tree-in-bud opacities in the posterior left lower lobe likely representing a focal area of bronchiolitis. Follow up CXR: FINDINGS: Significantly improved aeration of the lung yi noted compared with September 23 imaging. No evidence for a progressive lung parenchymal process. No enlarging pleural effusion. Heart and vasculature are normal. No pneumothorax. No acute bony abnormality seen. No acute aortic findings suspected. IMPRESSION: Improved aeration of the lung yi with substantial resolution of the infiltrative changes seen in the lower lung yi on the portable study. Posterior gutter remnant infiltrate can be masked on portable imaging. Medical Problem List: Cough, fever, shortness of breath secondary to bilateral pneumonia suspicious for viral illness must rule COVID 19 Elevated troponin likely from cardiac demand Hypertension Psoriasis on disease modifying medication Brief History of Present Illness: 44-year-old male with history of hypertension and psoriasis on immunotherapy. Patient presented with cough, fever and shortness of breath. Patient had been at a large gathering([employer] game) recently. There was some possible discussion that within the gathering a person he was in contact with became positive for COVID 19. Patient was evaluated in the emergency room. Patient found to be febrile. CT scan showed bilateral pneumonia with ground-glass changes. Patient admitted for further evaluation. Patient was hypoxic and required oxygen. Hospital Course: Patient presented with cough, fever and shortness of breath. Patient found to have bilateral pneumonia, right greater than left. Patient was admitted for further evaluation. Due to his history and risk factors the patient was evaluated for COVID 19. PPE precautions and respiratory isolation was done during the course of his stay. His condition improved rapidly. He was tested for COVID 19. Results pending at discharge. At discharge she is without significant chest pain, shortness of breath or fever. Pulmonology was consulted in the course of his stay. Pulmonology recommends discharge at this time since he is no longer hypoxic. At discharge, patient will go home with Levaquin 500 mg daily for 7 days, Tessalon Perles 100 mg 3 times a day as needed for cough and Mucinex 600 mg twice daily as needed for congestion. Patient will also be provided Pro air 2 puffs 3 times a day as needed for shortness of breath. Due to his risk factors for possible COVID 19, CDC guidelines for quarantined at home is recommended. Education on CDC guidelines will be provided at discharge. Results of viral testing will likely return in the next 24 hr. If positive health department will reach out to him for further evaluation and monitoring. If positive I will also reach out to him. Patient had elevated troponin likely cardiac demand related to bilateral pneumonia. Patient was seen by Cardiology. No cardiac intervention recommended at this time. Cardiology did recommend outpatient cardiac stress tests and echocardiogram in the future once medically stable. Patient with hypertension. This has remained stable. At discharge patient will continue with his current medication. Patient with psoriasis. Patient on disease modifying medication. Patient may continue with his topical agent. I will recommend to hold his immunotherapy until he is cleared of any severe infection. Vital Signs/Physical Exam: Temp Pulse Resp BP Pulse Ox 97.0 F 87 19 157/85 H 93 09/25/19 07:28 09/25/19 07:28 09/25/19 07:28 09/25/19 07:28 09/25/19 07:28 General: Alert, In no apparent distress, Oriented x3, Cooperative HEENT: Atraumatic Neck: Supple Respiratory: Clear to auscultation bilaterally, Normal air movement Cardiovascular: Normal pulses, Regular rate/rhythm Gastrointestinal: Normal bowel sounds, Soft and benign, Non-distended, No tenderness, No masses, No rebound, No guarding Musculoskeletal: No erythema, No tenderness, No warmth Integumentary: No tenderness/swelling, No erythema, No warmth, No cyanosis Neurological: Normal speech, Normal strength at 5/5 x4 extr, Normal tone, Normal affect Other Physical/Emotional Findings: Upon examination PPE protocol along with respiratory isolation precautions were done. Laboratory Data at Discharge: WBC 4.8 K/uL (4.3-10.9) 09/25/19 05:11 Hgb 14.4 g/dL (13.6-17.9) 09/25/19 05:11 Hct 42.9 % (39.6-49.0) 09/25/19 05:11 Plt Count 154 K/uL (152-406) 09/25/19 05:11 PT 12.2 SECONDS (9.5-12.5) 09/23/19 23:05 INR 1.04 09/23/19 23:05 APTT 33.3 SECONDS (24.3-36.9) 09/23/19 23:05 Sodium 139 mmol/L (136-145) 09/25/19 05:11 Potassium 4.2 mmol/L (3.5-5.1) 09/25/19 05:11 BUN 11 mg/dL (7-18) 09/25/19 05:11 Creatinine 0.71 mg/dL (0.55-1.3) 09/25/19 05:11 Glucose 108 mg/dL (74-106) H 09/25/19 05:11 Magnesium 2.1 mg/dL (1.8-2.4) 09/25/19 05:11 Total Bilirubin 0.3 mg/dL (0.2-1.0) 09/25/19 05:11 AST 27 U/L (15-37) 09/25/19 05:11 ALT 46 U/L (12-78) 09/25/19 05:11 Alkaline Phosphatase 97 U/L (45-117) 09/25/19 05:11 Troponin I 0.16 ng/mL (0.0-0.045) H 09/25/19 10:16 Lipase 175 U/L (73-393) 09/23/19 23:05 Home Medications: Clobetasol [Temovate Cream 0.05%*] 1 riley TOP DAILY 09/24/19 Guselkumab [Tremfya] 100 mg SQ SEECOM 09/24/19 Albuterol Sulfate [Proair Hfa] 2 puff IH TID PRN #1 hfa.aer.ad 09/25/19 Benzonatate [Tessalon Perle] 100 mg PO TID PRN #15 cap 09/25/19 Guaifenesin [Mucinex] 600 mg PO BID PRN #15 tab.er.12h 09/25/19 Levofloxacin [Levaquin] 500 mg PO DAILY #7 tablet 09/25/19 New Medications: Albuterol Sulfate [Proair Hfa] 2 puff IH TID PRN #1 hfa.aer.ad PRN Reason: Shortness Of Breath Benzonatate [Tessalon Perle] 100 mg PO TID PRN #15 cap PRN Reason: Cough Guaifenesin [Mucinex] 600 mg PO BID PRN #15 tab.er.12h PRN Reason: Cough Levofloxacin [Levaquin] 500 mg PO DAILY #7 tablet Patient Discharge Instructions: 1. Recommend follow up with PCP in 1-2 weeks to follow up this hospitalization. 2. Patient presented with cough, fever and shortness of breath. Patient found to have bilateral pneumonia, right greater than left. Patient was admitted for further evaluation. Due to his history and risk factors the patient was evaluated for COVID 19. PPE precautions and respiratory isolation was done during the course of his stay. His condition improved rapidly. He was tested for COVID 19. Results pending at discharge. At discharge she is without significant chest pain, shortness of breath or fever. Pulmonology was consulted in the course of his stay. Pulmonology recommends discharge at this time since he is no longer hypoxic. At discharge, patient will go home with Levaquin 500 mg daily for 7 days, Tessalon Perles 100 mg 3 times a day as needed for cough and Mucinex 600 mg twice daily as needed for congestion. Patient will also be provided Pro air 2 puffs 3 times a day as needed for shortness of breath. Due to his risk factors for possible COVID 19, CDC guidelines for quarantined at home is recommended. Education on CDC guidelines will be provided at discharge. Results of viral testing will likely return in the next 24 hr. If positive health department will reach out to him for further evaluation and monitoring. If positive I will also reach out to him. 3. Patient had elevated troponin likely cardiac demand related to bilateral pneumonia. Patient was seen by Cardiology. No cardiac intervention recommended at this time. Cardiology did recommend outpatient cardiac stress tests and echocardiogram in the future once medically stable. 4. Patient with hypertension. This has remained stable. At discharge patient will continue with his current medication. 5. Patient with psoriasis. Patient on disease modifying medication. Patient may continue with his topical agent. I will recommend to hold his immunotherapy until he is cleared of any severe infection. Diet: AHA Activity: Ad shanel Time spent managing pt's care (in minutes): 55
[2019-09-25 12:27] VITALS: BP 152/85; TEMP 96.8; O2SAT 95
== END 2019-09-25 14:50 | disposition home or self-care (01) | DRG 193 ==
LOC: ER 22:18 → ERHOLD 09-24 03:17 → 4TH 09-24 07:44
PROVIDERS: ADMIT Internal Medicine; ATTEND Internal Medicine
DX: J15.9 Unspecified bacterial pneumonia (principal); J96.01 Acute respiratory failure with hypoxia; Z68.42 Body mass index [BMI] 45.0-49.9, adult; R79.89 Other specified abnormal findings of blood chemistry; I10 Essential (primary) hypertension; L40.9 Psoriasis, unspecified; E66.9 Obesity, unspecified; Z20.828 Contact with and (suspected) exposure to other viral communicable diseases
CPT/HCPCS: 36415; 71045; 71046; 71275; 80048; 80053; 80076; 81015; 82550; 82947; 83605; 83690; 83735; 84145; 84443; 84484; 85025; 85379; 85610; 85730; 87040; 87070; 87081; 87086; 87088; 87205; 87804; 93005; 94640; 94760; 96372; 96374; 96375; 99285; J0456; J0696; J1650; J7030; J7606; Q9967; U0001

== ENCOUNTER 2020-12-16 18:06 | Inpatient (IN) | payer BC ==
[2020-12-16] MEDS ORDERED: KETOROLAC 30 MG/ML INJ ONE (19:48)
[2020-12-16] MEDS ORDERED: NA CHLORIDE 0.9% 500 ML ONE (19:49)
[2020-12-16 20:04] LABS: Absolute Lymphocytes (CBC) 2.1 K/uL (0.7-4.9); Basophils % 0.4 % (0-1.3); Hematocrit 39.8 % (39.6-49.0); MPV 9.2 fL (7.6-11.3); RBC Red Blood Cell Count 4.44 M/uL (4.33-5.43)
[2020-12-16 20:08] LABS: Protime INR 0.98
--- NOTE | 2020-12-16 20:13 | RAD REPORT ---
EXAM DESCRIPTION: Adelaida Single View12/16/2020 8:07 pm CLINICAL HISTORY: Chest pain COMPARISON: 2019 FINDINGS: The lungs appear clear of acute infiltrate. The heart is normal size IMPRESSION: No acute abnormalities displayed
[2020-12-16 20:14] LABS: ALT/SGPT 38 U/L (12-78); AST/SGOT 23 U/L (15-37); Albumin 3.3 g/dL (3.4-5.0); Alkaline Phosphatase 126 U/L (45-117); BUN Blood Urea Nitrogen 16 mg/dL (7-18); Bicarbonate 27 mmol/L (21-32); Bilirubin Direct < 0.1 mg/dL (0-0.2); Bilirubin Total 0.3 mg/dL (0.2-1.0); Glucose Level 136 mg/dL (74-106); Magnesium 2.1 mg/dL (1.8-2.4); NT PRO-BNP 7 pg/mL (<125); Potassium 3.7 mmol/L (3.5-5.1); Protein, Total 7.8 g/dL (6.4-8.2); Sodium Level 140 mmol/L (136-145); Troponin (Emerg Dept Use Only) 0.08 ng/mL (0.0-0.045)
[2020-12-16] MEDS ORDERED: MORPHINE 4 MG/ML SYR ONE (21:22)
[2020-12-16] MEDS ORDERED: ASPIRIN 81 MG CHEWABLE TABLET ONE (21:22)
--- NOTE | 2020-12-16 22:34 | ER ---
Nurse's Notes [facility] Name: Evan Boogie Jr Age: 45 yrs Sex: Male : 1975 Arrival Date: 12/16/2020 Time: 18:08 Bed 20 Private MD: Diagnosis: Chest pain, unspecified Presentation: 12/16 18:18 Chief complaint: Patient states: about a week or week and a half ago. i started getting tw2 a sharp pain right in the middle of my chest. it radiates through to my shoulder blades. when i was driving home from work it was in the middle of my chest and pain up into my neck so that's the pain that made me come in today. i have been fighting it through the night but i couldn't sit this one out. i feel like the pain has gotten worse the past week and a half or so. Coronavirus screen: At this time, the client does not indicate any symptoms associated with coronavirus-19. Ebola Screen: Patient denies travel to an Ebola-affected area in the 21 days before illness onset. Initial Sepsis Screen: Does the patient meet any 2 criteria? HR > 90 bpm. No. Patient's initial sepsis screen is negative. Does the patient have a suspected source of infection? No. Patient's initial sepsis screen is negative. Risk Assessment: Do you want to hurt yourself or someone else? Patient reports no desire to harm self or others. Onset of symptoms was December 16, 2020. 18:18 Method Of Arrival: Ambulatory tw2 18:18 Acuity: VALERIE 3 tw2 Triage Assessment: 18:23 General: Appears in no apparent distress. obese, well groomed, Behavior is calm, tw2 cooperative, appropriate for age. Pain: Complains of pain in left clavicle, anterior aspect of left upper chest, mid-sternal area and left breast Pain radiates to back. Cardiovascular: Reports chest pain. Historical: - Allergies: 18:23 No Known Allergies; tw2 - Home Meds: 18:23 lisinopril 10 mg Oral tab 1 tab once daily [Active]; Clobetasol Propionate Topical tw2 [Active]; - PMHx: 18:23 psoriasis; Hypertension; tw2 - PSHx: 18:23 None; tw2 - Immunization history:: Adult Immunizations. - Social history:: Smoking status: Patient denies any tobacco usage or history of. Patient uses alcohol, on a daily basis. admits to "couple of beers" a day. Screenin:00 Abuse screen: Denies threats or abuse. Denies injuries from another. Nutritional wh screening: No deficits noted. Tuberculosis screening: No symptoms or risk factors identified. Fall Risk None identified. Assessment: 19:30 General: Appears in no apparent distress. Behavior is calm, cooperative, appropriate wh for age. Pain: Complains of pain in chest Pain radiates to left clavicle Pain currently is 7 out of 10 on a pain scale. Quality of pain is described as sharp, Pain began a week ago. Neuro: Level of Consciousness is awake, alert, obeys commands, Oriented to person, place, time, situation, Appropriate for age. Cardiovascular: Reports chest pain, Heart tones S1 S2 Rhythm is regular. Respiratory: Airway is patent Respiratory effort is even, unlabored, Respiratory pattern is regular, symmetrical, Breath sounds are clear bilaterally. GI: Abdomen is round non-distended. : No signs and/or symptoms were reported regarding the genitourinary system. EENT: No signs and/or symptoms were reported regarding the EENT system. Derm: Skin is intact, is healthy with good turgor, Skin is pink, warm \\T\\ dry. Musculoskeletal: Circulation, motion, and sensation intact. 21:00 Reassessment: Patient appears in no apparent distress at this time. No changes from previously documented assessment. Patient and/or family updated on plan of care and expected duration. Pain level reassessed. Patient is alert, oriented x 3, equal unlabored respirations, skin warm/dry/pink. 22:30 Reassessment: Patient appears in no apparent distress at this time. Patient and/or family updated on plan of care and expected duration. Pain level reassessed. Patient is alert, oriented x 3, equal unlabored respirations, skin warm/dry/pink. 12/17 00:00 Reassessment: Patient appears in no apparent distress at this time. Patient and/or family updated on plan of care and expected duration. Pain level reassessed. Patient is alert, oriented x 3, equal unlabored respirations, skin warm/dry/pink. Provider at bedside explaining POC need for admit. Vital Signs: 06/10 18:18 BP 144 / 76; Pulse 96; Resp 17; Temp 97.9(TE); Pulse Ox 95% on R/A; Weight 127.01 kg tw2 (R); Height 5 ft. 6 in. (167.64 cm) (R); Pain 5/10; 21:00 BP 132 / 62; Pulse 80; Resp 18; Pulse Ox 94% on R/A; wh 22:30 BP 140 / 80; Pulse 79; Resp 18; Pulse Ox 96% on R/A; wh 12/17 00:00 BP 141 / 84; Pulse 81; Resp 18; Pulse Ox 95% on R/A; wh 12/16 18:18 Body Mass Index 45.19 (127.01 kg, 167.64 cm) tw2 12/16 18:18 "but 9 when i stand up" tw2 ED Course: 18:08 Patient arrived in ED. ds1 18:21 Triage completed. tw2 18:23 Arm band placed on. tw2 19:13 Issac Martinez PA is PHCP. cp 19:13 Ridge Bagley MD is Attending Physician. cp 19:13 Victorino Camarillo, AKIRA is Primary Nurse. wh 19:25 Initial lab(s) drawn, by ne, sent to lab. Inserted saline lock: 20 gauge in right em forearm, using aseptic technique. Blood collected. 19:25 Patient maintains SpO2 saturation greater than 95% on room air. em 20:00 Patient has correct armband on for positive identification. Placed in gown. Bed in low wh position. Call light in reach. Side rails up X 1. nurse monitoring on. Pulse ox on. NIBP on. 20:07 XRAY Chest (1 view) In Process Unspecified. EDMS 21:47 CT Aorta for Dissection In Process Unspecified. EDMS 22:33 Elvis Gamez MD is Hospitalizing Provider. cp 12/17 00:35 No provider procedures requiring assistance completed. Patient admitted, IV remains in place. Administered Medications: 12/16 19:31 Drug: TORadol (ketorolac) 30 mg Route: IVP; Site: right wrist; em 20:58 Follow up: Response: No adverse reaction; Pain is decreased 19:31 Drug: NS 0.9% 500 ml Route: IV; Rate: bolus; Site: left wrist; em 20:58 Follow up: Response: No adverse reaction; IV Status: Completed infusion 21:05 Drug: Aspirin Chewable Tablet 324 mg Route: PO; 22:46 Follow up: Response: No adverse reaction 21:05 Drug: morphine 4 mg {Note: RASS 0.} Route: IVP; Site: left wrist; 22:45 Follow up: Response: No adverse reaction; Pain is decreased; RASS: Alert and Calm (0) 22:45 Drug: Lovenox (enoxaparin) 100 mg Route: Sub-Q; Site: left lower abdomen; 12/17 00:30 Follow up: Response: No adverse reaction Outcome: 12/16 22:33 Decision to Hospitalize by Provider. 12/17 00:35 Admitted to Tele accompanied by nurse, via wheelchair, room 408, with chart, Report called to Muna Wise RN Condition: stable Instructed on the need for admit. 01:26 Patient left the ED. Signatures: Dispatcher [employer] Jeff Wagner RN RN Gracie Austin ds1 Issac Martinez PA PA Karen Armenta RN RN tw2 Victorino Camarillo RN RN
--- NOTE | 2020-12-16 22:34 | EDPHYS ---
Physician Documentation [facility] Name: Evan Boogie Jr Age: 45 yrs Sex: Male : 1975 Arrival Date: 12/16/2020 Time: 18:08 Bed 20 Private MD: ED Physician Ridge Bagley HPI: 12/16 19:25 This 45 yrs old Male presents to ER via Ambulatory with complaints of Chest cp Pain. 19:25 The patient or guardian reports chest pain that is located primarily in the substernal cp area. 19:25 Onset: 1 week(s) ago. The pain radiates to between shoulder blades. cp 19:25 The chest pain is described as sharp. cp 19:25 Duration: The patient or guardian reports multiple episodes, that wax and wane. cp Modifying factors: the symptoms are aggravated by activity. Historical: - Allergies: 18:23 No Known Allergies; tw2 - Home Meds: 18:23 lisinopril 10 mg Oral tab 1 tab once daily [Active]; Clobetasol Propionate Topical tw2 [Active]; - PMHx: 18:23 psoriasis; Hypertension; tw2 - PSHx: 18:23 None; tw2 - Immunization history:: Adult Immunizations. - Social history:: Smoking status: Patient denies any tobacco usage or history of. Patient uses alcohol, on a daily basis. admits to "couple of beers" a day. ROS: 19:30 Constitutional: Negative for body aches, chills, fever, poor PO intake. cp 19:30 Eyes: Negative for injury, pain, redness, and discharge. cp Exam: 19:25 ECG was reviewed by the Attending Physician. cp 19:33 Constitutional: The patient appears in no acute distress, alert, awake, cp non-diaphoretic, non-toxic, well developed, well nourished, obese. 19:33 Head/Face: Normocephalic, atraumatic. cp 19:33 Eyes: Periorbital structures: appear normal, Conjunctiva: normal, no exudate, no injection, Sclera: no appreciated abnormality, Lids and lashes: appear normal, bilaterally. 19:33 ENT: External ear(s): are unremarkable, Nose: is normal, Mouth: Lips: moist, Oral mucosa: moist, Posterior pharynx: Airway: no evidence of obstruction, patent. 19:33 Neck: ROM/movement: is normal, is supple, without pain, no range of motions limitations. 19:33 Chest/axilla: Inspection: normal, Palpation: crepitus, is not appreciated, tenderness, that is moderate, of the mid-sternal area. 19:33 Cardiovascular: Rate: normal, Rhythm: regular, Heart sounds: murmur, not appreciated, Edema: is not appreciated, JVD: is not appreciated. 19:33 Respiratory: the patient does not display signs of respiratory distress, Respirations: normal, no use of accessory muscles, no retractions, labored breathing, is not present, Breath sounds: are clear throughout, no decreased breath sounds, no stridor, no wheezing. 19:33 Abdomen/GI: Inspection: obese Palpation: abdomen is soft and non-tender, in all quadrants. 19:33 Neuro: Orientation: to person, place \\T\\ time. Mentation: is normal, Motor: moves all fours, strength is normal. Vital Signs: 18:18 BP 144 / 76; Pulse 96; Resp 17; Temp 97.9(TE); Pulse Ox 95% on R/A; Weight 127.01 kg tw2 (R); Height 5 ft. 6 in. (167.64 cm) (R); Pain 5/10; 21:00 BP 132 / 62; Pulse 80; Resp 18; Pulse Ox 94% on R/A; wh 22:30 BP 140 / 80; Pulse 79; Resp 18; Pulse Ox 96% on R/A; wh 06/11 00:00 BP 141 / 84; Pulse 81; Resp 18; Pulse Ox 95% on R/A; wh 06/10 18:18 Body Mass Index 45.19 (127.01 kg, 167.64 cm) tw2 0610 18:18 "but 9 when i stand up" tw2 MDM: 19:17 Patient medically screened. adriana 19:45 Differential diagnosis: abnormal EKG, acute myocardial infarction, acute pericarditis, cp chest wall pain, pneumonia, pneumothorax, pulmonary embolus, stable angina, thoracic aortic disection, unstable angina. 22:30 The patient was given aspirin in the Emergency Department. 22:30 Data reviewed: vital signs, nurses notes, lab test result(s), EKG, radiologic studies, cp plain films, and as a result, I will admit patient. Test interpretation: by ED physician or midlevel provider: ECG, plain radiologic studies. Physician consultation: Mitchell CHIRINOS was called at 22:30, was contacted at 22:30, regarding admission, to the telemetry unit. patient's condition. 12/16 19:21 Order name: Basic Metabolic Panel cp 12/16 19:21 Order name: CBC with Diff; Complete Time: 20:51 cp 12/16 19:21 Order name: LFT's; Complete Time: 20:51 cp 12/16 19:21 Order name: Magnesium; Complete Time: 20:51 cp 12/16 19:21 Order name: NT PRO-BNP; Complete Time: 20:51 cp 12/16 19:21 Order name: PT-INR; Complete Time: 20:51 cp 12/16 19:21 Order name: Troponin (emerg Dept Use Only); Complete Time: 20:51 cp 10 20:51 Interpretation: Abnormal: TROPED 0.08. cp 12/16 19:21 Order name: XRAY Chest (1 view); Complete Time: 20:51 cp 12/16 19:21 Order name: D-Dimer; Complete Time: 20:51 cp 10 19:22 Order name: Basic Metabolic Panel; Complete Time: 20:51 EDMS 10 20:56 Interpretation: Normal except: GLUC 136. cp /10 20:57 Order name: CT Aorta for Dissection cp 12/16 22:41 Order name: SARS-COV-2 RT PCR; Complete Time: 22:46 EDMS 12/16 19:21 Order name: EKG; Complete Time: 19:22 cp 10 19:21 Order name: Cardiac monitoring; Complete Time: 19:27 cp /10 19:21 Order name: EKG - Nurse/Tech; Complete Time: 19:26 cp /10 19:21 Order name: IV Saline Lock; Complete Time: 19:26 cp /10 19:21 Order name: Labs collected and sent; Complete Time: 19:26 cp /10 19:21 Order name: O2 Per Protocol; Complete Time: 19:27 cp /10 19:21 Order name: O2 Sat Monitoring; Complete Time: 19:27 cp EC:25 Rate is 91 beats/min. Rhythm is regular. MA interval is normal. QRS interval is normal. cp QT interval is normal. Interpreted by me. Reviewed by me. Administered Medications: 19:31 Drug: TORadol (ketorolac) 30 mg Route: IVP; Site: right wrist; em 20:58 Follow up: Response: No adverse reaction; Pain is decreased 19:31 Drug: NS 0.9% 500 ml Route: IV; Rate: bolus; Site: left wrist; em 20:58 Follow up: Response: No adverse reaction; IV Status: Completed infusion 21:05 Drug: Aspirin Chewable Tablet 324 mg Route: PO; 22:46 Follow up: Response: No adverse reaction 21:05 Drug: morphine 4 mg {Note: RASS 0.} Route: IVP; Site: left wrist; 22:45 Follow up: Response: No adverse reaction; Pain is decreased; RASS: Alert and Calm (0) 22:45 Drug: Lovenox (enoxaparin) 100 mg Route: Sub-Q; Site: left lower abdomen; 12/17 00:30 Follow up: Response: No adverse reaction Disposition: 07:06 Co-signature as Attending Physician, Ridge Bagley MD I agree with the assessment and kdr plan of care. Disposition: 12/16/20 22:33 Hospitalization ordered by Elvis Gamez for Inpatient Admission. Preliminary diagnosis is Chest pain, unspecified. - Bed requested for Telemetry/MedSurg (Inpatient). - Status is Inpatient Admission. - Condition is Stable. - Problem is new. - Symptoms have improved. Signatures: Dispatcher [employer] [facility] Issac Del Cid MD MD cha Rittger, Kevin, MD MD kdr Munoz, Edgar, RN RN Mitchell Hopson, EXECUTIVE SALES MANAGER-C EXECUTIVE SALES MANAGER-Cla1 Issac Martinez PA PA cp Garcia, Cindy, AKIRA RN Karen Justice, AKIRA RN 2 Victorino Camarillo RN RN Corrections: (The following items were deleted from the chart) 12/16 21:36 21:19 CORONAVIRUS+MR.LAB.LUCIE ordered. [facility] 12/17 00:13 12/16 22:33 Hospitalization Ordered by Elvis Gamez MD for Inpatient Admission. Preliminary diagnosis is Chest pain, unspecified. Bed requested for Telemetry/MedSurg (Inpatient). Status is Inpatient Admission. Condition is Stable. Problem is new. Symptoms have improved. cp 12/17 01:26 00:13 12/16/2020 22:33 Hospitalization Ordered by Elvis Gamez MD for Inpatient Admission. Preliminary diagnosis is Chest pain, unspecified. Bed requested for Telemetry/MedSurg (Inpatient). Status is Inpatient Admission. Condition is Stable. Problem is new. Symptoms have improved. cg
[2020-12-16] MEDS ORDERED: ENOXAPARIN 100 MG/ML SYR SQ ONE (23:02)
--- NOTE | 2020-12-17 00:52 | P.HP ---
Certification for Inpatient Patient admitted to: Inpatient With expected LOS: >2 Midnights Patient will require the following post-hospital care: None Practitioner: I am a practitioner with admitting privileges, knowledge of patient current condition, hospital course, and medical plan of care. Services: Services provided to patient in accordance with Admission requirements found in Title 42 Section 412.3 of the Code of Federal Regulations Patient History Date of Service: 12/16/20 Primary Care Provider: Dr. Roper Reason for admission: NSTEMI History of Present Illness: 45-year-old male with history of hypertension, psoriasis presents emergency department for chest pain going on over the course of the last 2 weeks that radiates to the left arm. Patient was evaluated in the emergency department, labs significant for mildly elevated troponin 0.08. Patient had CT dissection protocol which did not demonstrate any acute findings, chest x-ray unremarkable, EKG without acute changes. ED provider wishes to admit for chest pain, NSTEMI. When I saw the patient in the ER he is awake, alert, oriented x3, chest pain free at this time, patient given Lovenox full dose in the emergency department will admit for further evaluation and management. 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 moist/pink Neck: Supple, 2+ carotid pulse no bruit, No LAD Respiratory: Clear to auscultation bilaterally, Normal air movement Cardiovascular: Regular rate/rhythm, Normal S1 S2 Gastrointestinal: Normal bowel sounds, No tenderness Musculoskeletal: No tenderness Integumentary: No rashes Neurological: Normal speech, Normal strength at 5/5 x4 extr, Normal tone, Normal affect - Studies Laboratory Data (last 24 hrs) 12/16/20 19:25: PT 11.3, INR 0.98 12/16/20 19:25: WBC 8.70, Hgb 13.6, Hct 39.8, Plt Count 200 12/16/20 19:25: Sodium 140, Potassium 3.7, BUN 16, Creatinine 0.79, Glucose 136 H, Magnesium 2.1, Total Bilirubin 0.3, AST 23, ALT 38, Alkaline Phosphatase 126 H Assessment and Plan - Plan Assessment Chest pain,NSTEMI suspect ACS Hypertension Psoriasis Plan Chest pain,NSTEMI suspect ACS: Monitor on telemetry, trend troponins, patient received full dose Lovenox in the emergency department will continue this. Continue aspirin, metoprolol. Cardiology consulted, NPO in case of need for intervention. Continue Lovenox for DVT prophylaxis. Hypertension: Obtain and continue home medications, initiate therapy with metoprolol as well. Adjust as necessary. Psoriasis: Stable continue home meds. Discharge Plan: Home Plan to discharge in: 48 Hours - Advance Directives Does patient have a Living Will: No Does patient have a Durable POA for Healthcare: No - Code Status/Comfort Care Code Status Assessed: Yes (Full code) Critical Care: No Time Spent Managing Pts Care (In Minutes): 55
[2020-12-17] MEDS ORDERED: ONDANSETRON 4 MG/2 ML VIAL IV PRN (01:40)
[2020-12-17] MEDS: MORPHINE 2 MG/ML SYR IV PRN ×2 (01:46→14:00)
[2020-12-17] MEDS ORDERED: KETOROLAC 30 MG/ML INJ IV ONE (02:18)
[2020-12-17 03:32] VITALS: BMI 48.9
[2020-12-17 04:49] LABS: Basophils % 0.7 % (0-1.3); Hematocrit 40.2 % (39.6-49.0); Lymphocytes % 33.8 % (15.3-44.8); RBC Red Blood Cell Count 4.45 M/uL (4.33-5.43)
[2020-12-17 05:14] LABS: ALT/SGPT 35 U/L (12-78); AST/SGOT 15 U/L (15-37); Albumin 3.2 g/dL (3.4-5.0); Alkaline Phosphatase 98 U/L (45-117); BUN Blood Urea Nitrogen 17 mg/dL (7-18); Bicarbonate 27 mmol/L (21-32); Bilirubin Total 0.3 mg/dL (0.2-1.0); Glucose Level 106 mg/dL (74-106); HDL Cholesterol 46 mg/dL (40-60); LDL Cholesterol, Calculated 95 (<130); Magnesium 2.1 mg/dL (1.8-2.4); Potassium 4.1 mmol/L (3.5-5.1); Protein, Total 7.5 g/dL (6.4-8.2); Sodium Level 140 mmol/L (136-145); Troponin I 0.07 ng/mL (0.0-0.045)
[2020-12-17] MEDS: METOPROLOL TAR 25 MG TAB PO SCH ×2 (05:40→18:00)
[2020-12-17] MEDS ORDERED: CLOBETASOL 0.05 % CREAM 15GM TOP SCH (09:00)
[2020-12-17] MEDS ORDERED: ASPIRIN EC 81 MG TAB PO SCH (09:00)
[2020-12-17] MEDS ORDERED: lisinopriL 10 MG TAB PO SCH (09:00)
--- NOTE | 2020-12-17 12:01 | RAD REPORT ---
EXAM DESCRIPTION: CT - Angio Aorta For Dissection - 12/17/2020 4:25 am CLINICAL HISTORY: 45 years Male CHEST PAIN COMPARISON: CT chest from 09/24/2019. TECHNIQUE: Contiguous axial images obtained through the chest, abdomen and pelvis following IV contr ast. Reformatted images obtained. This exam was performed according to our department optimization program which includes automated exp osure control, adjustment of the mA and/or kv according to patient size and/or use of iterative recon struction technique. FINDINGS: Mild stranding in the anterior mediastinum of uncertain etiology. The findings could be fr om multiple tiny lymph nodes. The appearance was similar on the prior study. No pericardial effusion. No pulmonary emboli are identified. Minimal atelectatic changes. No consolidating infiltrates or pleural effusions. No pneumothorax. The liver is enlarged measuring 18.5 cm. The spleen and pancreas appear unremarkable. Nodular lesion in the left adrenal gland measuring 1.6 cm similar compared to the prior study. The kidneys appear unremarkable. No hydronephrosis. The gallbladder is visualized. No bowel obstruction. The appendix appears unremarkable. No free pelvic fluid. Fat-containing umbilical hernia. There is mild stranding in the herniated fat which is nonspecific. I nflammatory changes are not excluded. No aneurysmal dilatation or evidence for dissection in the thoracic or abdominal aorta. No significant atherosclerotic changes are identified. The left vertebral artery arises from the aortic arch. The celiac artery, SMA, two right-sided renal arteries, single left renal artery and ALDEN appear widel y patent. The iliac arteries are widely patent. IMPRESSION: 1. No aneurysmal dilatation or evidence for dissection in the thoracic or abdominal ao rta. 2. Fat-containing umbilical hernia. There is mild stranding in the herniated fat which is nonspecif ic. Inflammatory changes are not excluded. 3. Nodular lesion in the left adrenal gland measuring 1.6 cm similar compared to the prior study. 4. Other findings as above. Electronically signed by: Mikey Guy MD 12/16/2020 10:15 PM CDT Due to temporary technical issues with the PACS/Fluency reporting system, reports are being signed by the in house radiologist without review as a courtesy to ensure prompt reporting. The interpreting r adiologist is fully responsible for the content of the report.
[2020-12-17] MEDS ORDERED: MIDAZOLAM HCL 2 MG/2 ML INJ ONE (14:58)
[2020-12-17] MEDS ORDERED: HEPA 1000U/500MLS 2,000 UNIT/1,000 ML BAG IV ONE (14:58)
[2020-12-17] MEDS ORDERED: FENTANYL CITR 100 MCG/2 ML ONE (14:58)
[2020-12-17] MEDS ORDERED: LIDOCAINE 1% 20 ML MDV ONE (14:58)
[2020-12-17] MEDS ORDERED: HEPARIN 5000 UNIT/ML 1 ML VIAL ONE (14:58)
[2020-12-17] MEDS ORDERED: NITROGLYCERIN/D5W 25 MG/250 ML BTL IV ONE (14:59)
[2020-12-17] MEDS ORDERED: HEPARIN 10,000 UNIT/10 ML VIAL IV ONE (14:59)
[2020-12-17] MEDS ORDERED: NITROGLYCERIN 100 MCG/ML SYR (for cath lab use only) IV ONE (14:59)
[2020-12-17] MEDS ORDERED: ATROPINE SULF 1 MG/10 ML SYR IV ONE (14:59)
[2020-12-17 16:40] VITALS: TEMP 97.4
--- NOTE | 2020-12-17 17:56 | P.PN ---
Subjective Date of Service: 12/17/20 Primary Care Provider: Dr. Roper Chief Complaint: NSTEMI Subjective: No new changes (chest pain somewhat improved, no other complaints) Review of Systems 10-point ROS is otherwise unremarkable Physical Examination - Vital Signs Temperature: 97.4 F Blood Pressure: 144/86 Pulse: 86 Respirations: 16 Pulse Ox (%): 91 - Studies Laboratory Data (last 24 hrs) 12/16/20 19:25: PT 11.3, INR 0.98 12/16/20 19:25: WBC 8.70, Hgb 13.6, Hct 39.8, Plt Count 200 12/16/20 19:25: Sodium 140, Potassium 3.7, BUN 16, Creatinine 0.79, Glucose 136 H, Magnesium 2.1, Total Bilirubin 0.3, AST 23, ALT 38, Alkaline Phosphatase 126 H Assessment & Plan Physician Review Additional Text: Physical Exam General: Alert, In no apparent distress, Oriented x3 Respiratory: Clear to auscultation bilaterally, Normal air movement Cardiovascular: Regular rate/rhythm, Normal S1 S2 Gastrointestinal: soft, nontender Integumentary: No rashes Neurological: Normal speech, Normal strength at 5/5 x4 extr, Normal affect Problem List Chest pain, NSTEMI suspect ACS Hypertension Psoriasis -continue telemetry, trend trop -continue lovenox -cardio consulted, planning for cardiac cath this afternoon dispo: likely dc home if cath ok Time Spent Managing Pts Care (In Minutes): 35
--- NOTE | 2020-12-17 18:36 | P.DS ---
Admission Date: 12/17/20 Discharge Date: 12/17/20 Primary Care Provider: Dr. Roper Disposition: ROUTINE DISCHARGE Discharge Condition: GOOD Reason for Admission: NSTEMI Consultations: Cardiology Dr. Pinto Procedures: CT dissection protocol FINDINGS: Mild stranding in the anterior mediastinum of uncertain etiology. The findings could be from multiple tiny lymph nodes. The appearance was similar on the prior study. No pericardial effusion. No pulmonary emboli are identified. Minimal atelectatic changes. No consolidating infiltrates or pleural effusions. No pneumothorax. The liver is enlarged measuring 18.5 cm. The spleen and pancreas appear unremarkable. Nodular lesion in the left adrenal gland measuring 1.6 cm similar compared to the prior study. The kidneys appear unremarkable. No hydronephrosis. The gallbladder is visualized. No bowel obstruction. The appendix appears unremarkable. No free pelvic fluid. Fat-containing umbilical hernia. There is mild stranding in the herniated fat which is nonspecific. Inflammatory changes are not excluded. No aneurysmal dilatation or evidence for dissection in the thoracic or abdominal aorta. No significant atherosclerotic changes are identified. The left vertebral artery arises from the aortic arch. The celiac artery, SMA, two right-sided renal arteries, single left renal artery and ALDEN appear widely patent. The iliac arteries are widely patent. IMPRESSION: 1. No aneurysmal dilatation or evidence for dissection in the thoracic or abdominal aorta. 2. Fat-containing umbilical hernia. There is mild stranding in the herniated fat which is nonspecific. Inflammatory changes are not excluded. 3. Nodular lesion in the left adrenal gland measuring 1.6 cm similar compared to the prior study. 4. Other findings as above. Chest x-ray FINDINGS: The lungs appear clear of acute infiltrate. The heart is normal size IMPRESSION: No acute abnormalities displayed lab aide report Normal coronaries per cardiology, see operative report for details Problem list Chest pain ACS ruled out Hypertension Psoriasis Brief History of Present Illness: 45-year-old male with history of hypertension, psoriasis presents emergency department for chest pain going on over the course of the last 2 weeks that radiates to the left arm. Patient was evaluated in the emergency department, labs significant for mildly elevated troponin 0.08. Patient had CT dissection protocol which did not demonstrate any acute findings, chest x-ray unremarkable, EKG without acute changes. ED provider wishes to admit for chest pain, NSTEMI. When I saw the patient in the ER he is awake, alert, oriented x3, chest pain free at this time, patient given Lovenox full dose in the emergency department will admit for further evaluation and management. Hospital Course: You or admitted for chest pain, your initial cardiac enzyme was very mildly elevated, repeat blood tests showed this level had lowered and stabilized. Your seen by cardiology and had a heart catheterization which demonstrated to have no rmal coronary arteries. He also had a CT scan which demonstrated that she did not have any blood clots or problems with the blood vessels that could also cause chest pain. Her labs were relatively unremarkable aside from mild elevation in your TSH which is a thyroid function test. He should follow up with her primary care doctor for additional information regarding this test. Please keep your appointment for Sunday with her primary care doctor. Recommend taking over the counter Aleve or ibuprofen periodically for the pain in her chest. Vital Signs/Physical Exam: Temp Pulse Resp BP Pulse Ox 97.4 F 96 H 14 168/77 H 91 12/17/20 17:55 12/17/20 18:29 12/17/20 18:29 12/17/20 18:29 12/17/20 17:55 General: Alert, In no apparent distress HEENT: Atraumatic, PERRLA, EOMI Neck: Supple, JVD not distended Respiratory: Clear to auscultation bilaterally, Normal air movement Cardiovascular: Regular rate/rhythm, Normal S1 S2 Gastrointestinal: Normal bowel sounds, No tenderness Musculoskeletal: No tenderness Integumentary: No rashes Neurological: Normal speech, Normal tone, Normal affect Lymphatics: No axilla or inguinal lymphadenopathy Laboratory Data at Discharge: WBC 5.90 K/uL (4.3-10.9) D 12/17/20 04:28 Hgb 13.3 g/dL (13.6-17.9) L 12/17/20 04:28 Hct 40.2 % (39.6-49.0) 12/17/20 04:28 Plt Count 200 K/uL (152-406) 12/17/20 04:28 PT 11.3 SECONDS (9.5-12.5) 12/16/20 19:25 INR 0.98 12/16/20 19:25 Sodium 140 mmol/L (136-145) 12/17/20 04:28 Potassium 4.1 mmol/L (3.5-5.1) 12/17/20 04:28 BUN 17 mg/dL (7-18) 12/17/20 04:28 Creatinine 0.67 mg/dL (0.55-1.3) 12/17/20 04:28 Glucose 106 mg/dL (74-106) 12/17/20 04:28 Magnesium 2.1 mg/dL (1.8-2.4) 12/17/20 04:28 Total Bilirubin 0.3 mg/dL (0.2-1.0) 12/17/20 04:28 AST 15 U/L (15-37) 12/17/20 04:28 ALT 35 U/L (12-78) 12/17/20 04:28 Alkaline Phosphatase 98 U/L (45-117) 12/17/20 04:28 Troponin I 0.07 ng/mL (0.0-0.045) H 12/17/20 10:31 Triglycerides 122 mg/dL (<150) 12/17/20 04:28 Cholesterol 165 mg/dL (<200) 12/17/20 04:28 HDL Cholesterol 46 mg/dL (40-60) 12/17/20 04:28 Cholesterol/HDL Ratio 3.59 12/17/20 04:28 Home Medications: Clobetasol [Temovate Cream 0.05%*] 1 riley TOP DAILY 09/24/19 Guselkumab [Tremfya] 100 mg SQ SEECOM 09/24/19 lisinopriL [Prinivil] 10 mg PO DAILY 12/17/20 Physician Discharge Instructions: You were admitted for chest pain, your initial cardiac enzyme was very mildly elevated, repeat blood tests showed this level had lowered and stabilized. Your seen by cardiology and had a heart catheterization which demonstrated to have normal coronary arteries. He also had a CT scan which demonstrated that she did not have any blood clots or problems with the blood vessels that could also cause chest pain. Her labs were relatively unremarkable aside from mild elevation in your TSH which is a thyroid function test. He should follow up with her primary care doctor for additional information regarding this test. Please keep your appointment for Sunday with her primary care doctor. Recommend taking over the counter Aleve or ibuprofen periodically for the pain in her chest. Diet: AHA Activity: Ad shanel Followup: Maximo Roper DO, DO [Primary Care Provider] - Time spent managing pt's care (in minutes): 20
[2020-12-17 19:05] VITALS: BP 156/84; O2SAT 94
[2020-12-17] MEDS ORDERED: HYDROCODONE/APAP 5/325 MG TAB ONE (19:20)
--- NOTE | 2020-12-17 20:53 | OP ---
Date of Procedure: 12/17/2020 Surgeon: ROGER CHICAS Procedure Performed: Selective coronary angiogram. Indication: [id number] myocardial infarction. Access: Right radial artery 6-Bhutanese closed with TR band. Complications: None. Bleeding: Less than 10 mL. Description Of Procedure: After risks, benefits, and alternatives were explained, the patient agreed to proceed and signed informed consent. The patient was brought into the cardiac catheterization la boratory, prepped and draped in usual sterile fashion. Then, we accessed right radial artery using [employer] micropuncture kit and placed a 6-Bhutanese slender sheath and then we took a 5-Bhutanese [place] 4.0 catheter in the aortic root, engaged the left main and then took a 4-Bhutanese 3DRC catheter, engaged t he right coronary artery, which has very high and anterior takeoff. Then, removed the catheter and t he sheath, and placed TR band with good hemostasis. Findings: 1.Left main is large and normal. 2.LAD is large and normal. 3.Left circumflex is normal. 4.RCA is large, dominant, and normal. Conclusion: Normal coronary arteries. Plan: Medical management. SR/MODL Voice ID: [id number] Report ID: [id number]
[2020-12-17] MEDS ORDERED: ATORVASTATIN 40 MG TAB PO SCH (21:00)
--- NOTE | 2020-12-19 19:58 | CON ---
Date of Consultation: 12/17/2020 Reason For Consultation: Chest pain. History Of Present Illness: A 45-year-old male comes in with chest pain, pressure-like, related to a ctivities, on and off for the past day. Denies having any cough or shortness of breath or diaphoresi s and no history of coronary artery disease. Past Medical History: Hypertension and obesity. Medications: Refer to reconciliation sheet for detailed list. Allergies: NO KNOWN DRUG ALLERGIES. Family History: No premature coronary artery disease. Social History: Does not smoke or drink. Does not use any drugs. Review of Systems: All systems reviewed and they were negative except for what was mentioned in the HPI. Physical Examination: Vital Signs: Reviewed. Head and Neck: Pupils are equal, reactive to light. Intact eye movements. No JVD. No cervical lym phadenopathy. Neck: Supple. Thyroid is not enlarged. Lungs: Clear to auscultation bilaterally. No rhonchi, rales, or crackles. No accessory muscle use. Heart: Regular rate and rhythm. No extra sounds. Abdomen: Soft, nontender. Bowel sounds positive. No organomegaly. No masses or hernia. No rigidi ty or rebound. Extremities: No edema, clubbing, cyanosis. Intact pulses. Skin: No rashes. Neurologic: Alert, awake, oriented x3. No acute focal deficit appreciated. Investigations: Troponin 0.08, creatinine 0.76, hemoglobin is 13.6. Assessment And Recommendations: Chest pain with positive troponin, possible non-ST elevation myocard ial infarction. Keep n.p.o. and plan for coronary angiogram and continue aspirin. Thank you for the consult. /EMIGDIO Voice ID: [id number] Report ID: [id number]
== END 2020-12-17 19:23 | disposition home or self-care (01) | DRG 287 ==
LOC: ER 18:06 → 4TH 12-17 00:03
PROVIDERS: ADMIT Hospitalist; ATTEND Hospitalist
PROC: B2111ZZ Fluoroscopy of Multiple Coronary Arteries using Low Osmolar Contrast (ICD-10-PCS; principal; 2020-12-17)
PROC: 4A023N7 Measurement of Cardiac Sampling and Pressure, Left Heart, Percutaneous Approach (ICD-10-PCS; 2020-12-17)
DX: R07.9 Chest pain, unspecified (principal); L40.9 Psoriasis, unspecified; I10 Essential (primary) hypertension; E11.9 Type 2 diabetes mellitus without complications; Z79.899 Other long term (current) drug therapy; Z20.822 Contact with and (suspected) exposure to COVID-19
CPT/HCPCS: 36415; 71045; 71275; 74175; 80048; 80053; 80061; 80076; 83735; 83880; 84439; 84443; 84484; 85025; 85379; 85610; 93458; 96372; 99285; C1893; J1644; J1650; J2250; J2270; J3010; J7040; Q9967; U0003

== ENCOUNTER → 2020-12-17 | Emergency (ER) | payer BC | LOC: ER 23:12 | DX: R69 Illness, unspecified (principal); Z53.21 Procedure and treatment not carried out due to patient leaving prior to being seen by health care provider | CPT/HCPCS: 93005 ==